=== PATIENT | female | born 1955 | race Caucasian/White ===

== ENCOUNTER 2018-10-07 16:36 | Inpatient (IN) | payer OTHER ==
[~2018-10-07] VITALS: Ht 160 cm; Wt 83.0 kg
--- NOTE | ~2018-10-07 | CON ---
[address] [address] CONSULTATION Name: BOBTAMRA G Room: [address] IN M.R.#: [id number] Admission: 10/07/18 Attend Phys: Candi Evangelista Discharge: Date of : 57 Report #: [id number] THIS REPORT FOR: //name// CC: Kwaku Mccord MD [facility] Lynda Chacon [facility] Sukumar Duggan CHIEF COMPLAINT: Chest pain. HISTORY OF PRESENT ILLNESS: The patient is a very pleasant 62-year-old white female with history of coronary artery disease. She has had previous percutaneous coronary intervention to the mid LAD. Catheterization in 09/2015 showed the stent to be widely patent. At that time, she was found to have a 30-40% proximal LAD narrowing, 30% distal LAD narrowing, widely patent stent in the proximal first obtuse marginal branch with no other significant disease in the circumflex. A nondominant right had 80% proximal and mid stenoses. No intervention was undertaken at that time. Left ventricular systolic function was normal by noninvasive studies. She has been relatively symptom-free until the last couple of weeks when she has had what she describes as indigestion. Her discomfort is located midsternal. She also describes profuse diaphoresis occurring spontaneously for the last several months. There is no specific radiation of the discomfort. The pain does not seem to be associated with exertion. She reports some occasional nausea with the discomfort as well. She has occasional exertional dizziness. She says there is an underlying discomfort that is persistent and there all the time. Her symptoms of more intense "indigestion" tend to wax and wane. She is without other cardiac complaints at this time. She has dyspnea on exertion, but no orthopnea or paroxysmal nocturnal dyspnea. She is not having palpitations. CARDIAC RISK FACTORS: Include tobacco use, hyperlipidemia, type 2 diabetes mellitus, family history of coronary artery disease and hyperlipidemia. She does not have any carotid or peripheral vascular disease by history. ALLERGIES: SUCCINYLCHOLINE. CURRENT MEDICATIONS: Aspirin 81 mg daily, fish oil 1000 mg b.i.d., metformin 500 mg b.i.d., Neurontin 600 mg t.i.d., Robaxin 750 mg q. 8 hours p.r.n., Cymbalta 60 mg daily, lisinopril 10 mg daily. PAST MEDICAL HISTORY: Back surgery x 8, ankle surgery x 2, hysterectomy, laparoscopic cholecystectomy, hernia repair, chronic back pain, hypertension, percutaneous coronary intervention, hyperlipidemia, tobacco use. FAMILY HISTORY: Positive [place] [address] CONSULTATION Name: TAMRA ROJAS Room: [address] IN .R.#: [id number] Admission: 10/07/18 Attend Phys: Candi Evangelista Discharge: Date of : 57 Report #: [id number] SOCIAL HISTORY: The patient smokes daily. 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 She wears glasses without acute visual loss. She has decreased hearing. Otherwise, 14-point review of systems is unremarkable. PHYSICAL EXAMINATION: VITAL SIGNS: Stable. Blood pressure 105/58, pulse 72 and regular. GENERAL: This is a pleasant lady in no distress. Mood and affect appropriate. HEENT: The patient is wearing glasses. Extraocular muscles intact. Mucous membranes moist. NECK: Shows no jugular venous distention. There are no carotid bruits. CHEST: Reveals clear lung diaz without wheezes or rales. CARDIAC: Reveals a regular rhythm with normal S1 and S2. I do not appreciate gallop or murmur. ABDOMEN: Reveals normal bowel sounds. The abdomen is soft, nontender. EXTREMITIES: Show no edema. SKIN: Warm and dry. Peripheral pulses 2+ and palpable. A 12-lead EKG shows sinus rhythm with nonspecific T-wave flattening. There is slight left axis deviation. I do not appreciate acute ST or T-wave abnormality. LABORATORY DATA: Reviewed. Troponins are less than 0.06. IMPRESSION AND RECOMMENDATION: 1. Atypical chest pain. Recommend stress testing. Further intervention will be pending the results/study. 2. Coronary artery disease. Continue daily aspirin. Consider resuming statin agent and beta opal. 3. Hypertension, adequately controlled on current cardiac medications. 4. Hyperlipidemia. Resume atorvastatin. 5. Diaphoresis. I doubt this represents angina. I suspect this is more hormonally related. By: [id number] Mireles MD /nt
[~2018-10-07 16:36] MED LIST: ALEVE220 M1 PO; ASPIR 8181 MG PO; COREG3.125 MG PO; CYMBALTA60 MG PO; DUONEB 2.5-0.5 M3 ML INH; EFFIENT10 MG PO; IMDUR 30 MG TAB30 M1 PO; LEVOFLOXACIN750 MG PO; LIPITOR20 MG PO; LISINOPRIL10 MG PO; MUCINEX TA600 MG/TA2 PO; MUCINEX600 MG PO; NEURONTIN 300M300 M2 PO; NORCO 10-325 T1 EACH PO; OMEGA-31000 M1 PO; OPANA ER30 M1 PO; PREDNISONE 20 M20 M1 PO; PRINZIDE 20-121 EACH PO; ROBAXIN 750 MG750 MG PO; VICODIN HP 10-1 EAC1 PO; WELCHOL 625 MG625 M1 PO; ZESTORETIC 20-1 EAC3 PO
[2018-10-07 16:42] VITALS: BP 132/75
[2018-10-07] MEDS ORDERED: METFORMIN HCL500 MG PO (16:49)
[2018-10-07 17:07] LABS: ABSOLUTE BASOPHILS 0.1 thou/uL (0.0-0.2); ABSOLUTE EOSINOPHILS 0.2 thou/uL (0.0-0.7); ABSOLUTE LYMPHOCYTES 3.5 thou/uL (0.8-5.3); ABSOLUTE MONOCYTES 1.1 thou/uL (0.0-1.2); ABSOLUTE NEUTROPHILS 6.7 thou/uL (1.6-8.1); BASOPHILS 1.1 %; EOSINOPHILS 1.9 %; HEMATOCRIT 45.7 % (37.0-47.0); HEMOGLOBIN 15.1 gm/dL (12.0-15.0); LYMPHOCYTES 30.2 %; MCV 84.8 fL (80.0-100.0); MONOCYTES 9.1 %; MPV 8.4 fl. (7.2-11.1); NUCLEATED RBCS 0 /100WBC; PLATELET COUNT* 295 thou/uL (150-400); POLYS 57.7 %; RBC 5.39 mil/uL (4.20-5.00); RDW-CV 13.9 % (10.5-14.5); WBC 11.6 thou/uL (4.0-11.0)
[2018-10-07 17:25] LABS: PROTIME 10.5 Seconds (9.20-11.50)
[2018-10-07 17:32] LABS: ANION GAP 6 mmol/L (7-16); BUN 32 mg/dL (7-18); CALCIUM 9.5 mg/dL (8.5-10.1); CHLORIDE 101 mmol/L (98-107); CO2 32 mmol/L (21-32); CREATININE 1.7 mg/dL (0.6-1.3); GLUCOSE 116 mg/dL (70-99); POTASSIUM 3.8 mmol/L (3.5-5.1); SODIUM 139 mmol/L (136-145); TROPONIN-I LEVEL <0.06 ng/mL (<0.06)
[2018-10-07 17:34] LABS: ALBUMIN 4.4 g/dL (3.4-5.0); ALKALINE PHOSPHATASE 88 U/L (46-116); LIPASE 196 U/L (73-393); MAGNESIUM 1.4 mg/dL (1.8-2.4); NT-PRO BRAIN NAT PEPTIDE 105 pg/mL (<300); SGOT 33 U/L (15-37); SGPT 22 U/L (30-65); TOTAL BILIRUBIN 0.7 mg/dL (<0.1-1.0); TOTAL PROTEIN 7.9 g/dL (6.4-8.2)
[2018-10-07 20:00] VITALS: BP 111/65
[2018-10-07 20:07] VITALS: BP 132/68
[2018-10-08] VITALS: BP 104/60
[2018-10-08 04:00] VITALS: BP 109/64
--- NOTE | 2018-10-08 05:21 | NUR ---
RECEIVED PT FROM ED AT APPROX 2006. PT IS AWAKE AND ORIENTED X4. VSS ON 2L/NC. PLACED ON RADIO ARTIST, TRACING SR WITH OCCASIONAL PVCs. DENIES CHEST PAIN NOR SOA. ORIENTED TO ROOM SET UP AND TO THE USE OF CALL LIGHT. ADVISED TO HAVE NOTHING PER [place] BY MIDNIGHT FOR CARDIOLOGY. NEEDS ATTENDED. CALL LIGHT WITHIN REACH. HOURLY ROUNDING DONE FOR PT SAFETY.
[2018-10-08 05:30] LABS: CALCIUM 8.5 mg/dL (8.5-10.1); CREATININE 1.7 mg/dL (0.6-1.3); POTASSIUM 4.3 mmol/L (3.5-5.1)
[2018-10-08 08:19] VITALS: BP 105/58
[2018-10-08 10:02] LABS: ABSOLUTE BASOPHILS 0.1 thou/uL (0.0-0.2); ABSOLUTE EOSINOPHILS 0.3 thou/uL (0.0-0.7); ABSOLUTE LYMPHOCYTES 2.9 thou/uL (0.8-5.3); ABSOLUTE NEUTROPHILS 4.6 thou/uL (1.6-8.1); BASOPHILS 0.9 %; EOSINOPHILS 3.5 %; MCH 28.6 pg (26.0-34.0); MCHC 33.1 g/dL (28.0-37.0); MCV 86.2 fL (80.0-100.0); MONOCYTES 11.1 %; MPV 8.4 fl. (7.2-11.1); NUCLEATED RBCS 0 /100WBC; PLATELET COUNT* 246 thou/uL (150-400); POLYS 51.5 %; RBC 4.52 mil/uL (4.20-5.00); RDW-CV 13.7 % (10.5-14.5); WBC 8.9 thou/uL (4.0-11.0)
[2018-10-08 10:10] LABS: ANION GAP 5 mmol/L (7-16); BUN 35 mg/dL (7-18); CALCIUM 8.6 mg/dL (8.5-10.1); CHLORIDE 105 mmol/L (98-107); CHOLESTEROL 95 mg/dL (<200); CO2 31 mmol/L (21-32); CREATININE 1.4 mg/dL (0.6-1.3); GLUCOSE 111 mg/dL (70-99); HDL CHOLESTEROL 34 mg/dL (>40); LDL CHOLESTEROL 14 mg/dL (<100); POTASSIUM 4.3 mmol/L (3.5-5.1); SERUM ASSESSMENT Clear; SODIUM 141 mmol/L (136-145); TC:HDL 2.8 Ratio (Not establshd); TRIGLYCERIDE 235 mg/dL (<150); TROPONIN-I LEVEL <0.06 ng/mL (<0.06); VLDL 47 mg/dL (<40)
[2018-10-08 10:15] LABS: HEMOGLOBIN 12.9 gm/dL (12.0-15.0)
[2018-10-08 12:49] VITALS: BP 126/73
--- NOTE | 2018-10-08 14:26 | NUR ---
Pt is A&O. Resides at home with her . Normally independent. Pt has a cpap and neb at home. No hx of HH or SNF. Goal is home at nm. Following.
[2018-10-08 14:36] VITALS: BP 126/73
[2018-10-08 16:22] LABS: URINE BILIRUBIN NEGATIVE (Negative); URINE BLOOD TRACE (Negative); URINE CLARITY CLEAR; URINE COLOR YELLOW; URINE GLUCOSE-RANDOM NEGATIVE (Negative); URINE KETONES NEGATIVE (Negative); URINE LEUKOCYTES-REFLEX 1+ (Negative); URINE NITRITE-REFLEX NEGATIVE (Negative); URINE PROTEIN NEGATIVE (Negative); URINE UROBILINOGEN 0.2 E.U./dl (0.2-1.0)
--- NOTE | 2018-10-08 16:24 | CARDNUC ---
[place] [address] CARDIAC NUCLEAR IMAGING REPORT Name: TAMRA ROJAS Room: [address] IN [facility]#: [id number] Admission: 10/07/18 Attend Phys: Lynda Chacon Discharge: Date of : 57 Date of Service: 10/08/18 1623 Report #: [id number] THIS REPORT FOR: //name// APPROVED REPORT Study performed: 10/08/2018 10:00:00 Indication: Chest pain Patient Location: In-Patient Room #: 209 Stress Tech: Lynsey Leyva Stress Nurse: Audrey Shen RN Ht: 5 ft 2 in Wt: 183 lbs BSA: 1.84 m2 BMI: 33.46 Medical History Medical History: Angina, ARF, CAD s/p TX, CAD s/p stent, HTN, Diabetes, Fatigue, Former Smoker,, Obesity , Weakness. Medications: Mg, Lipitor, ASA 81 MG, Fish Oil, Home meds include Metformin, Lisinopril. Allergies: Succinylcholine Chloride (Anectine). Cardiac Risk Factors: Age, DM, FHX of CAD, HTN, Past Smoker, ARF, HX TX Previous Cardiac Procedures: Myocardial infarction, PCI. Pretest Chest Pain Characteristics: No chest pain Exercise History: Indeterminate Physical Disabilities: IV infusion, back and knee pain. Meds Held (24 hrs): None Resting Data Rest SPECT myocardial perfusion imaging was performed in supine position 30 minutes following the intravenous injection of 12.0 mCi of Tc-99m Sestamibi. Time of rest injection: 12:00 The images were gated to evaluate regional wall motion and calculate left ventricular ejection fraction. Administration Route: IV Administration Site: Left AC Pharmacologic Stress Pharmacologic stress test was performed by injecting Regadenoson 0.4 mg IV push over 10-15 seconds immediately followed by the intravenous injection of 37.4 mCi of Tc-99m Sestamibi. Time of stress injection: 13:50 [place] [address] CARDIAC NUCLEAR IMAGING REPORT Name: TAMRA ROJAS Room: [address] IN [facility]#: [id number] Admission: 10/07/18 Attend Phys: Lynda Chacon Discharge: Date of : 57 Date of Service: 10/08/18 1623 Report #: [id number] Administration Route: IV Administration Site: Left AC Heart Rate at time of stress injection: 101 bpm. Gated Stress SPECT was performed 40 minutes after stress injection. The images were gated to evaluate regional wall motion and calculate left ventricular ejection fraction. Prone imaging was performed. Stress Test Details Stress Test: Pharmacologic stress testing performed using 0.4 mg of regadenoson per 5 mL given IV over 10 seconds. Reason for pharmacologic stress test: Patient on IV infusion, back and knee pain.. HR Max Heart Rate (APMHR): 159 bpm Resting HR: 64 bpm Target HR (85% APMHR): 135 bpm Max HR Achieved: 101 bpm % of APMHR: 63 Recovery HR: 84 bpm BP Resting BP: 119/64 mmHg Max BP: 110/65 mmHg Recovery BP: 133/71 mmHg ECG Resting ECG: Sinus Rhythm Stress ECG: Sinus Rhythm ST Change: None Arrhythmia: None Recovery ECG: Sinus Rhythm Recovery ST Change: None Recovery Arrhythmia: None Clinical Reason for Termination: Completed protocol Stress Symptoms: Head pressure, Nausea, Ear pressure. Exercise duration: 0 min 0 sec Exercise capacity: 1.00 METs The patient tolerated Lexiscan infusion without significant symptoms. Nurse Comments 62 year old female inpatient presented with recent HX of CP and active nausea. Patient had an IV infusion running and reported back and knee pain. Patient performed a sitting Lexiscan [place] [address] CARDIAC NUCLEAR IMAGING REPORT Name: TAMRA ROJAS Room: [address]#: [id number] Admission: 10/07/18 Attend Phys: Lynda Chacon Discharge: Date of : 57 Date of Service: 10/08/18 1623 Report #: [id number] increased nausea and near vomiting. 4 mg of IV push Zofran was administered, effective. Patient completed test and recovery was unremarkable with PO caffeine. Patient was escorted via wheelchair by staff to Nuclear Medicine for images. Patient was stable with no complaints at that time. Stress ECG Conclusion The baseline 12-lead EKG shows sinus rhythm with nonspecific T-wave flattening. EKGs obtained during and post Lexiscan infusion show sinus rhythm with no significant ST or T wave changes when compared to baseline. There were no stress-induced arrhythmias. Study Quality Study: Good Artifact: Mild Breast artifact Study Data At rest, the left ventricular ejection fraction was 72%.. Post stress, the left ventricular ejection was 78%.. TID = 0.94. Perfusion There is very mild photopenia in the distal anterior wall on resting images that resolves completely with post stress images and prone poststress images consistent with breast attenuation artifact. No other significant fixed or reversible defects are identified. Wall Motion Normal left ventricular wall motion. Nuclear Conclusion ECG Findings: negative for ischemia Clinical Findings: negative for ischemia Nuclear Findings: negative for ischemia Exercise Capacity: not assessed Left Ventricular Function: normal Risk Study: low Myocardial perfusion images show no defect to suggest infarct or ischemia. Left ventricular systolic function appears normal on gated studies. This is a low risk study. <Conclusion> The baseline 12-lead EKG shows sinus rhythm with nonspecific T-wave flattening. EKGs obtained during and [place] [address] CARDIAC NUCLEAR IMAGING REPORT Name: TAMRA ROJAS Room: [address] IN [facility].#: [id number] Admission: 10/07/18 Attend Phys: Lynda Chacon Discharge: Date of : 57 Date of Service: 10/08/18 1623 Report #: [id number] sinus rhythm with no significant ST or T wave changes when compared to baseline. There were no stress-induced arrhythmias. <ELECTRONICALLY SIGNED> By: Reese Austin MD, FACC 10/08/18 162 22 22 Reese Austin MD, FACC /INF
[2018-10-08 16:27] LABS: BACTERIA-REFLEX 1-9 Few /HPF (None Seen); CASTS None Seen /LPF (None Seen); CRYSTALS None Seen /LPF (None Seen); SQUAMOUS NONE SEEN /LPF (0-3); TRANSITIONAL EPITHEL CELL 0-3 Few /LPF (None Seen); URINE RBC 0-2 Rare /HPF (0-2); URINE WBC-REFLEX 0-5 Rare /HPF (0-5)
--- NOTE | 2018-10-08 16:55 | EKG ---
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: [place] : 1955 Requested By: Leona Mahmood Order Number: [id number] MD: Reese Austin Measurements Intervals [place] Rate: 68 P: 33 IA: 157 QRS: -30 QRSD: 110 T: 32 QT: 415 QTc: 442 Interpretive Statements Sinus rhythm Left axis deviation Low voltage, precordial leads RSR' in V1 or V2, right VCD or RVH Compared to ECG 09/16/2015 07:59:16 Low QRS voltage now present Electronically Signed On 10-08-2018 16:54:55 CDT by Reese Austin [email or web address] <ELECTRONICALLY SIGNED> By: Reese Austin MD, FACC 10/08/18 1654 1641 164 Reese Austin MD, FACC /EPI
[2018-10-08] MEDS ORDERED: NEURONTIN 300M300 M2 PO (16:58)
[2018-10-08] MEDS ORDERED: ROBAXIN 750 MG750 MG PO (16:58)
[2018-10-08] MEDS ORDERED: ATORVASTATIN CA20 MG PO (16:58)
[2018-10-08] MEDS ORDERED: PROTONIX40 M1 PO (16:59)
--- NOTE | 2018-10-08 17:10 | EKG ---
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: : 1955 Requested By: Lynda Chacon Order Number: [id number] MD: Reese Austin Measurements Intervals [place] Rate: 66 P: 37 NE: 163 QRS: -30 QRSD: 110 T: 7 QT: 430 QTc: 451 Interpretive Statements Sinus rhythm Multiple ventricular premature complexes Left axis deviation Low voltage, precordial leads RSR' in V1 or V2, right VCD or RVH Borderline T abnormalities, anterior leads Compared to ECG 09/16/2015 07:59:16 Ventricular premature complex(es) now present Low QRS voltage now present T-wave abnormality now present of vertigo so sinus rhythm premature ventricular complexes low-voltage early transition RSR prime some older person Electronically Signed On 10-08-2018 17:10:31 CDT by Reese Austin [email or web address] <ELECTRONICALLY SIGNED> By: Reese Austin MD, [facility] 10/08/18 1710 2 2 Reese Austin MD, [facility] /EPI
[2018-10-08 17:40] VITALS: BP 123/67
--- NOTE | 2018-10-08 17:50 | NUR ---
ORDERS RECIEVIED FOR OKAY TO D/C TO HOME THIS SHIFT IF STRESS TEST NEGATIVE- STRESS TEST REPORTED NEGATIVE PER - IV TO LEFT AC D/C'D ALONG WITH DISTANCE LEARNING TECHNICIAN PRIOR TO D/C- D/C TEACHING/EDUCATION/NEED FOLLOW UP'S COMMUNICATED WITH VERBAL UNDERSTANDING RECIEVIED PER PT- WRITTEN EDUCATION ALONG WITH SCRIPTS PROVIDED TO PT PRIOR TO D/C- DM EDUCAITON R/T DIET GIVEN TO PT PRIOR TO D/C- ALL QUESTIONS AND CONCERNS ADDRESSED PRIOR TO D/C- BELONGINGS PACKED AND ACCOUNTED FOR PER PT- PT ESCORTED PER TECH VIA AMB WITH BELONGINGS; AT SIDE TO VEHICLE AT 1752- NO PROBLEMS TO NOTE AT TIME OF D/C
[2018-10-09 02:07] LABS: GLYCOHEMOGLOBIN (HGB A1C) 6.7 % (4.8-5.6)
== END 2018-10-08 17:55 | disposition home or self-care (01) | DRG 392 ==
LOC: M.ERS 16:36 → M.2W 18:07 → M.TBA-ER 18:07 → M.2W 20:07
PROVIDERS: Family Medicine; Personal Emergency Response Attendant; ADMIT Internal Medicine
PROC: 5A09357 Assistance with Respiratory Ventilation, Less than 24 Consecutive Hours, Continuous Positive Airway Pressure (ICD-10-PCS; principal; 2018-10-07)
DX: K21.9 Gastro-esophageal reflux disease without esophagitis (principal); N18.4 Chronic kidney disease, stage 4 (severe); N17.9 Acute kidney failure, unspecified; E11.22 Type 2 diabetes mellitus with diabetic chronic kidney disease; G89.29 Other chronic pain; I12.9 Hypertensive chronic kidney disease with stage 1 through stage 4 chronic kidney disease, or unspecified chronic kidney disease; M54.9 Dorsalgia, unspecified; F17.210 Nicotine dependence, cigarettes, uncomplicated; I25.10 Atherosclerotic heart disease of native coronary artery without angina pectoris; E78.5 Hyperlipidemia, unspecified; E11.42 Type 2 diabetes mellitus with diabetic polyneuropathy; E83.42 Hypomagnesemia; Z79.899 Other long term (current) drug therapy; Z88.0 Allergy status to penicillin; Z95.5 Presence of coronary angioplasty implant and graft; I25.2 Old myocardial infarction; Z90.49 Acquired absence of other specified parts of digestive tract; Z90.710 Acquired absence of both cervix and uterus

== ENCOUNTER → 2019-03-11 | Outpatient (CLI) | payer OTHER ==
[~2019-03-11] MED LIST changes: +ATORVASTATIN CA20 MG PO; +METFORMIN HCL500 MG PO; +PROTONIX40 M1 PO
== END ==
LOC: M.CT 08:41
DX: M43.16 Spondylolisthesis, lumbar region (principal); M43.26 Fusion of spine, lumbar region; N28.89 Other specified disorders of kidney and ureter; Z90.49 Acquired absence of other specified parts of digestive tract; Z90.710 Acquired absence of both cervix and uterus